=== PATIENT | male | born 1995 | race Caucasian/White ===

== ENCOUNTER 2020-05-12 18:32 | Emergency (ER) | payer OTHER, SELFPAY ==
--- NOTE | ~2020-05-12 | XR_ITS ---
EXAMINATION: XR FINGER, LEFT CLINICAL INFORMATION: Concern for foreign body. COMPARISON: 05/12/2020. TECHNIQUE: AP and lateral of the left second digit. FINDINGS: There are no demonstrable radiopaque foreign bodies. There is soft tissue swelling to the second digit. There are no fractures or dislocations. XR/XR finger LT min 2V IMPRESSION: No residual radiopaque foreign bodies demonstrable.
--- NOTE | ~2020-05-12 | XR_ITS ---
EXAMINATION: XR FINGER, LEFT CLINICAL INFORMATION: Laceration. COMPARISON: None TECHNIQUE: 3 views of the left index finger. FINDINGS: There is no fracture or dislocation. At the palmar side of the distal index finger there is a cluster of multiple tiny radiopacities just deep to the skin line associated with the laceration. XR/XR finger LT min 2V IMPRESSION: Multiple small radiopaque foreign bodies just deep to the skin line associated with a laceration at the distal tip of the index finger
[2020-05-12 18:41] VITALS: BP 129/67; PULSE 70; RESP 18; TEMP 36.4; O2SAT 98; BMI 25.7
--- NOTE | 2020-05-12 22:50 | ED_ITS ---
HPI - Wound/Laceration General Chief Complaint: Wound/Laceration Stated Complaint: finger lac Time Seen by Provider: 05/12/20 21:59 Source: patient Mode of arrival: ambulatory Limitations: no limitations History of Present Illness HPI narrative: 24-year-old male with no significant past medical history presents with laceration to the left index finger. Patient states he was removing a dougals part of his car and the part cut his finger open. He was able to apply a pressure dressing however the bleeding is not controlled. Onset (ago): hour(s) (Within the hour of arrival) Extremity Location: left: hand (Index finger) Place: home Patient tetanus UTD: No Context: accidental Associated symptoms: pain and suspect foreign body present Treatments prior to arrival: bandage Related Data Previous Rx's Medication Instructions Recorded oxycodone 5 mg PO Q8H PRN #10 tab 05/13/20 Allergies Allergy/AdvReac Type Severity Reaction Status Date / Time bee pollen [BEE STINGS] Allergy Intermediate SWELLING Verified 05/12/20 18:40 Review of Systems Review of Systems: Constitutional: No Fever, No Chills ENT/Mouth: No Ear Pain, No Hoarseness, No sore throat Eyes: No Eye Pain, No Swelling, No Redness, No Foreign Body Cardiovascular: No Chest Pain, No SOB Respiratory: No Cough, No Dyspnea Gastrointestinal: No Nausea, No Vomiting, No Diarrhea, No abdominal Pain Genitourinary: No Dysuria, No Hematuria Musculoskeletal: positive right index finger pain, No Myalgias, No Joint Swelling Skin: Positive right index finger laceration, No rash Neuro: No Weakness, No Numbness, No Paresthesias, No Loss of Consciousness, No Dizziness, No Headache Psych: No Anxiety/Panic, No Depression Heme/Lymph: no easy bruising, no Lymphadenopathy Endocrine: No Polyuria, No Polydipsia Yes all other systems are reviewed and are negative [facility] Past Medical History Attestation statement: The following information was validated with the patient. Source: old records reviewed Medical History Anxiety Social History Social History Advance Directives: No Advance Directives Information Provided: Yes Physical Exam Vital Signs: Vital Signs: Last Vital Signs Temp 97.6 F 05/12/20 18:41 Pulse 70 05/12/20 18:41 Resp 18 05/12/20 18:41 BP 129/67 05/12/20 18:41 Pulse Ox 98 05/12/20 18:41 Body Mass Index 25.7 Appearance: Alert. Oriented X3. No acute distress. Eyes: Pupils equal, round and reactive to light. ENT: Pharynx normal. Neck: Normal inspection. Neck supple. CVS: Normal heart rate and rhythm. Pulses normal. Respiratory: No respiratory distress. Breath sounds normal. Abdomen: Soft and nontender. Skin: Skin warm and dry. Normal skin color. Normal skin turgor. Extremities: Full range of motion to all digits, no tendon injury, strength 5/5 to all fingers, brisk capillary refill. Laceration approximately 4 cm, actively bleeding, visible debris Neuro: No motor deficit. No sensory deficit. Course Course Course Narrative: 24-year-old male presents with a left index laceration with visible debris. Patient does have full range of motion, no indication of tendon injury as he has full strength. X-ray does not indicate bone involvement but shows multiple fragments of metallic debris. Will update Tdap vaccine at this time. Prepped and draped in sterile fashion, aseptic technique utilized, Digital block completed, patient tolerated procedure well, copious amounts of irrigation and debridement. Repeat x-ray no longer has debris present, wound sutured. Please refer to procedure note for full details. Approximately 30 minutes status post laceration repair, brisk capillary refill, area is tender will give oxycodone for pain management. 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 Patient verbalized understanding of and agrees to plan of care discharge home. Procedures Laceration Laceration 1: Site: hand Side (If applicable): left Size (cm): 4 Description: linear Depth: simple, single layer Local Anesthetic: lidocaine 2% Amount of anesthesia used (mL): 2 Pre-repair: wound explored, irrigated extensively, deep structures intact and extensive debridement Skin layer closed with: nylon Size (cm): 4-0 Number of sutures: 11 Technique: simple, interrupted Nerve Block Nerve Block 1: Time out performed: Yes Local Anesthetic: lidocaine 2% Amount of anesthesia used (mL): 4 Side: left Nerve Blocks: digital Procedure Successful: Yes Patient Tolerated Procedure: well and no complications Complications: none MDM - Wound/Laceration Differential Diagnosis Differential diagnosis: Likely laceration Medical Records Attestation: I reviewed the patient's medical records. Lab Data Attestation: I reviewed the patient's lab results. Imaging Data Left index finger x-ray: Attestation: I personally reviewed and interpreted this imaging study as follows: Radiologist's impression: EXAMINATION: XR FINGER, LEFT CLINICAL INFORMATION: Laceration. COMPARISON: None TECHNIQUE: 3 views of the left index finger. FINDINGS: There is no fracture or dislocation. At the palmar side of the distal index finger there is a cluster of multiple tiny radiopacities just deep to the skin line associated with the laceration. XR/XR finger LT min 2V IMPRESSION: Multiple small radiopaque foreign bodies just deep to the skin line associated with a laceration at the distal tip of the index finger Left index finger x-ray status post debridement: Attestation: I personally reviewed and interpreted this imaging study as follows: Radiologist's impression: XR FINGER, LEFT CLINICAL INFORMATION: Concern for foreign body. COMPARISON: 05/12/2020. TECHNIQUE: AP and lateral of the left second digit. FINDINGS: There are no demonstrable radiopaque foreign bodies. There is soft tissue swelling to the second digit. There are no fractures or dislocations. XR/XR finger LT min 2V IMPRESSION: No residual radiopaque foreign bodies demonstrable. Discharge Plan Discharge Clinical Impression: Laceration Patient Disposition: Home, Self-Care Instructions: Finger Laceration (ED) Additional Instructions: You were evaluated for laceration to your index finger. Please keep sutures in for 14 days. If you notice signs and symptoms of infection please seek immediate medical attention. Is prescribed oxycodone, this medication is a narcotic and has high risk for addiction and abuse. Do not drive or operate machinery while taking this medication. This medication may increase risk for falls, cause drowsiness, and constipation. Use MiraLax and needed to keep stool soft, drink plenty of fluids. We updated your Tdap vaccine today. Thank you for choosing this emergency department for evaluation. Please follow-up with primary care physician as needed. Return to the emergency department for any new, concerning, or worsening symptoms. Prescriptions: New oxycodone 5 mg tablet 5 mg PO Q8H PRN (Reason: pain) Qty: 10 RF: 0 Stand Alone Forms: Work/School Release Interventions: ED Discharge Assessment Last Done: 05/13/20 01:20 Discharge Date/Time: 05/13/20 00:30
[2020-05-12] MEDS: Lidocaine HCl 2 % MPF 5 ML VIAL 10 ML SUBCUT (23:20)
== END 2020-05-13 00:30 | disposition home or self-care (01) ==
PROVIDERS: Emergency Provider Internal Medicine
DX: S61.211A Laceration without foreign body of left index finger without damage to nail, initial encounter (principal); W26.8XXA Contact with other sharp object(s), not elsewhere classified, initial encounter; Y93.89 Activity, other specified; Y92.015 Private garage of single-family (private) house as the place of occurrence of the external cause; Y99.9 Unspecified external cause status
CPT/HCPCS: 12042; 64450; 73140; 90471; 90715; 99283; 99284

== ENCOUNTER 2020-10-07 11:05 | Outpatient (REF) | payer OTHER, SELFPAY ==
--- NOTE | ~2020-10-07 | MR_ITS ---
EXAMINATION: MR BRAIN WITHOUT CONTRAST CLINICAL INFORMATION: Seizures. COMPARISON: None available. TECHNIQUE: Multiplanar, multisequence imaging of the brain was performed without intravenous contrast. FINDINGS: There is no acute infarction, mass, hemorrhage, or extra-axial collection. The ventricles, sulci, and basilar cisterns are normal in size and configuration. The left posterior hippocampal body and tail is asymmetrically smaller in size compared with the right but the hippocampal signal appears normal and symmetric. No focal cortical dysplasia is seen. There is no evidence of heterotopic amin matter. The flow voids of the major intracranial arteries appear intact. The bones and extracranial soft tissues are unremarkable. There is prominent fat signal seen along the posterior margin of the left parotid gland presumably representing a lipoma in this region. MR/MR head/brain wo con IMPRESSION: Asymmetrically decreased size of the posterior body and tail of the left hippocampus for which correlation with seizure semiology is recommended. Otherwise, no discrete epileptogenic nidus is seen. There is no mass or acute intracranial abnormality.
== END 2020-10-07 11:06 | disposition home or self-care (01) ==
LOC: HO.MRI 11:05
PROVIDERS: PCP Physician Assistant; Visit Provider Physician Assistant
DX: R56.9 Unspecified convulsions (principal)
CPT/HCPCS: 70551

== ENCOUNTER 2020-10-27 06:38 | Outpatient (REF) | payer OTHER, SELFPAY ==
--- NOTE | 2020-10-27 06:30 | EEG_ITS ---
This is a 16-channel EEG with an EKG lead. The patient is reported awake during the tracing. Background EEG rhythm is low amplitude, fast with no obvious asymmetry or paroxysmal tendency. Photic stimulation does not produce any significant driving. Hyperventilation is not performed. No sharp wave spikes or paroxysmal tendency or asymmetry noted. IMPRESSION: No significant abnormality noted on this EEG. MD KIERAN Verma/DARNELL / [id number]
== END 2020-10-27 06:39 | disposition home or self-care (01) ==
LOC: HO.NEURO 06:38
PROVIDERS: Visit Provider Physician Assistant
DX: R41.82 Altered mental status, unspecified (principal)
CPT/HCPCS: 95819

== ENCOUNTER 2023-02-09 09:44 | Outpatient (REF) | payer OTHER, SELFPAY ==
--- NOTE | ~2023-02-09 | US_ITS ---
ULTRASOUND-GUIDED THYROID NODULE FINE NEEDLE ASPIRATION INDICATION: Right lobe midpole thyroid nodule 1.7 cm nodule seen on outside imaging, recommended for FNA. Question of solid versus cystic. PROCEDURE: Informed consent was obtained from the patient prior to the procedure. During this process, the procedure and potential alternatives were explained, along with the intended outcome and benefits. The risks of the procedure, as well as the risks of not doing the procedure, were discussed. The patient was given the opportunity to ask questions regarding the procedure and appeared competent to make medical decisions. A signed consent form which documents this discussion was placed in the medical record. A timeout was performed in the room. The patient was placed in a supine position with the neck extended. The right side of the neck and chest was prepped and draped in routine sterile fashion. 1% lidocaine was used as anesthetic of skin and subcutaneous tissues. Under real-time ultrasound guidance, a 25-gauge needle was placed into the nodule and several passes of aspiration performed utilizing standard technique. Light brown cyst contents were encountered. A total of 3 mL of fluid was aspirated with complete decompression of the cyst. There were no solid components of the nodule for additional sampling. The specimens were placed in CytoLyt and and the Affirm bottle. Postprocedure images showed no hematoma. A Band-Aid was applied to the access site. The patient tolerated the procedure well with no immediate complications. Permanent ultrasound images were archived to the procedure. US/US guided fine needle asp IMPRESSION: Right thyroid nodule fine-needle aspiration of right thyroid predominantly cystic nodule. No definite solid component identified. Findings strongly suggest benignity. This procedure was performed by Edison Urias PA-C, and directly supervised by Dr. Cervantes
[2023-02-09] MEDS: Lidocaine HCl 1 % MPF 5 ML VIAL SUBCUT (11:16)
== END 2023-02-09 09:45 | disposition home or self-care (01) ==
LOC: HO.US 09:44
PROVIDERS: PCP Physician Assistant; Visit Provider Internal Medicine Endocrinology, Diabetes & Metabolism
DX: E04.2 Nontoxic multinodular goiter (principal)
CPT/HCPCS: 10005; 88173; 88305

== ENCOUNTER → 2023-02-09 10:30 | Outpatient (BNV) | payer OTHER, SELFPAY | PROVIDERS: PCP Physician Assistant; Visit Provider Radiology Diagnostic Radiology | DX: E04.1 Nontoxic single thyroid nodule (principal) | CPT/HCPCS: 10005 ==